=== PATIENT | female | born 1935 | race Caucasian/White ===

== ENCOUNTER 2017-07-29 17:04 | Emergency (ER) | payer MEDICARE | END 2017-07-29 22:50 | disposition home or self-care (01) | LOC: D.ER 17:04 | DX: J18.9 Pneumonia, unspecified organism (principal); I10 Essential (primary) hypertension ==

== ENCOUNTER 2019-11-07 17:12 | Emergency (ER) | payer MEDICARE ==
[~2019-11-07] VITALS: Ht 162.6 cm; Wt 71.8 kg
[2019-11-07 17:31] VITALS: Ht 162.6 cm; Wt 71.8 kg
[2019-11-07] MEDS ORDERED: NORVASC5 MG PO (17:32)
[2019-11-07] MEDS ORDERED: HYDROCHLOROTHIA25 MG PO (17:33)
[2019-11-07] MEDS ORDERED: FLUTICASONE PRO16 GM NASAL (17:33)
[2019-11-07] MEDS ORDERED: LEVOCETIRIZINE PO (17:35)
[2019-11-07] MEDS ORDERED: MECLIZINE HCL25 MG PO (17:35)
[2019-11-07 18:22] LABS: BASOPHILS 0.5 % (0-2); EOSINOPHILS 1.7 % (0-7); HEMATOCRIT 40.4 % (36.0-48.0); HEMOGLOBIN 13.3 g/dL (12-16); IMMATURE GRANULOCYTES 0.1 % (0-5); LYMPHOCYTES 25.1 % (15-50); MCH 31.2 pg (26.0-34.0); MCHC 32.9 g/dL (31.0-37.0); MCV 94.8 fL (80.0-100.0); MEAN PLATELET VOLUME 10.8 fL (7.4-10.4); MONOCYTES 8.4 % (2-11); NEUTROPHILS 64.2 % (40-80); PLATELET COUNT 207 10x3/uL (130-400); RBC 4.26 10x6/uL (4.00-5.40); RDW 12.8 % (11.5-14.5); WBC 8.1 10x3/uL (4.8-10.8)
[2019-11-07 18:26] LABS: ALBUMIN 3.6 g/dL (3.4-5.0); ANION GAP 11.4 mmol/L (8-16); BILIRUBIN - TOTAL 0.5 mg/dL (0.2-1.3); CALCIUM 9.1 mg/dL (8.5-10.1); CARBON DIOXIDE 28.3 mmol/L (21.0-32.0); CREATININE - SERUM 1.3 mg/dL (0.6-1.3); PROTEIN - SERUM 7.6 g/dL (6.4-8.2)
[2019-11-07 18:54] LABS: POTASSIUM - SERUM 2.7 mmol/L (3.5-5.1)
[2019-11-07] MEDS ORDERED: K-DUR20 MEQ PO (19:16)
[2019-11-07 21:43] VITALS: BP 149/86
== END 2019-11-07 21:44 | disposition home or self-care (01) ==
LOC: D.ER 17:12
PROVIDERS: Family Medicine
DX: M54.2 Cervicalgia (principal); E87.6 Hypokalemia; M25.511 Pain in right shoulder; I10 Essential (primary) hypertension; I25.2 Old myocardial infarction; Z86.711 Personal history of pulmonary embolism

== ENCOUNTER 2019-11-21 19:43 | Emergency (ER) | payer MEDICARE ==
[~2019-11-21] VITALS: Ht 162.6 cm; Wt 72.3 kg
[~2019-11-21 19:43] MED LIST: FLUTICASONE PRO16 GM NASAL; HYDROCHLOROTHIA25 MG PO; K-DUR20 MEQ PO; LEVOCETIRIZINE PO; MECLIZINE HCL25 MG PO; NORVASC5 MG PO
[2019-11-21 19:47] VITALS: Ht 162.6 cm; Wt 72.3 kg
[2019-11-21 20:38] LABS: BASOPHILS 0.4 % (0-2); EOSINOPHILS 1.2 % (0-7); HEMATOCRIT 39.5 % (36.0-48.0); HEMOGLOBIN 12.6 g/dL (12-16); IMMATURE GRANULOCYTES 0.6 % (0-5); LYMPHOCYTES 15.7 % (15-50); MCH 30.8 pg (26.0-34.0); MCHC 31.9 g/dL (31.0-37.0); MCV 96.6 fL (80.0-100.0); MEAN PLATELET VOLUME 9.6 fL (7.4-10.4); MONOCYTES 6.7 % (2-11); NEUTROPHILS 75.4 % (40-80); RBC 4.09 10x6/uL (4.00-5.40); RDW 12.8 % (11.5-14.5); WBC 7.8 10x3/uL (4.8-10.8)
[2019-11-21 20:47] LABS: UDS - AMPHET NEGATIVE QUAL (NEGATIVE); UDS - BARB NEGATIVE QUAL (NEGATIVE); UDS - BENZO NEGATIVE QUAL (NEGATIVE); UDS - COCAINE NEGATIVE QUAL (NEGATIVE); UDS - OPIATE NEGATIVE QUAL (NEGATIVE); UDS - PCP NEGATIVE QUAL (NEGATIVE); UDS - THC NEGATIVE QUAL (NEGATIVE)
[2019-11-21 20:51] LABS: ANION GAP 9.1 mmol/L (8-16); CALCIUM 8.9 mg/dL (8.5-10.1); CARBON DIOXIDE 30.4 mmol/L (21.0-32.0); CREATININE - SERUM 1.4 mg/dL (0.6-1.3); POTASSIUM - SERUM 3.5 mmol/L (3.5-5.1)
[2019-11-21 20:56] LABS: PLATELET COUNT 273 10x3/uL (130-400)
[2019-11-21 20:59] LABS: BILIRUBIN NEGATIVE (NEGATIVE); GLUCOSE NEGATIVE (NEGATIVE); KETONE NEGATIVE (NEGATIVE); NITRITE NEGATIVE (NEGATIVE); UROBILINOGEN NORMAL (NORMAL)
[2019-11-21 21:03] LABS: APTT 23.6 SECONDS (22.8-39.4); INR 0.91 (0.85-1.17); PROTIME 12.3 SECONDS (11.6-15.0)
[2019-11-21 21:04] LABS: ALBUMIN 3.5 g/dL (3.4-5.0); BILIRUBIN - TOTAL 0.32 mg/dL (0.2-1.3); MAGNESIUM - SERUM 2.3 mg/dL (1.8-2.4); PROTEIN - SERUM 7.5 g/dL (6.4-8.2); THYROID STIMULATING HORMONE 2.18 uIU/mL (0.36-3.74); TROPONIN-I 0.024 ng/mL (0.000-0.060)
[2019-11-21 21:13] LABS: BACTERIA FEW /hpf (NEGATIVE); EPITHELIAL CELLS 0-5 /hpf (0-5); RED CELLS - URINE OCC /hpf (0-5); WHITE CELLS - URINE 0-5 /hpf (NEGATIVE)
[2019-11-21 21:27] VITALS: BP 134/65
== END 2019-11-21 21:33 | disposition home or self-care (01) ==
LOC: D.ER 19:43
PROVIDERS: Family Medicine
DX: R55 Syncope and collapse (principal); S09.90XA Unspecified injury of head, initial encounter; I10 Essential (primary) hypertension; I25.2 Old myocardial infarction; W19.XXXA Unspecified fall, initial encounter; Y93.9 Activity, unspecified; Y92.9 Unspecified place or not applicable

== ENCOUNTER 2020-01-15 12:24 | Inpatient (IN) | payer MEDICARE ==
[2020-01-15] VITALS (18 sets, daily range): BP systolic 115–163; BP diastolic 55–95; BMI 27.8
[~2020-01-15] VITALS: Ht 162.6 cm; Wt 72.7 kg
--- NOTE | 2020-01-15 12:24 | NUR ---
PT BIB FRIEND, ARRIVED AT [facility] REPORTING LEFT FACIAL DROOP X 1 HR. TO ER T3, DR AC AT BS, THEN TO CT @ 2756
--- NOTE | 2020-01-15 12:48 | NUR ---
FSBS= 151 MG/DL
--- NOTE | 2020-01-15 12:49 | NUR ---
CONSENT FOR VIDEO CONFERENCE AND TPA ADMIN EXPL TO PT, VERB UNDER. CONSENT SIGNED/WITNESSED
--- NOTE | 2020-01-15 12:50 | NUR ---
ANTHONY ELENA NOTIFIED AND ASSESSMENT COMPLETED WITH DR AUSTIN, NEUROLOGIST.
[2020-01-15 12:59] LABS: BASOPHILS 0.5 % (0-2); EOSINOPHILS 1.9 % (0-7); HEMATOCRIT 41.5 % (36.0-48.0); HEMOGLOBIN 13.6 g/dL (12-16); IMMATURE GRANULOCYTES 0.4 % (0-5); LYMPHOCYTES 24.2 % (15-50); MCH 30.7 pg (26.0-34.0); MCHC 32.8 g/dL (31.0-37.0); MCV 93.7 fL (80.0-100.0); MEAN PLATELET VOLUME 10.1 fL (7.4-10.4); MONOCYTES 7.4 % (2-11); NEUTROPHILS 65.6 % (40-80); RBC 4.43 10x6/uL (4.00-5.40); RDW 12.9 % (11.5-14.5); WBC 8.6 10x3/uL (4.8-10.8)
[2020-01-15 13:00] LABS: PLATELET COUNT 193 10x3/uL (130-400)
--- NOTE | 2020-01-15 13:00 | NUR ---
STROKE [facility] # [id number]
[2020-01-15 13:02] LABS: CALC OSMOLALITY 283 mosm/kg (275-300); CALCIUM 9.5 mg/dL (8.5-10.1); CARBON DIOXIDE 27.1 mmol/L (21.0-32.0); CHLORIDE - SERUM 105 mmol/L (98-107); CREATININE - SERUM 1.4 mg/dL (0.6-1.3); GLUCOSE 154 mg/dL (74-106); POTASSIUM - SERUM 3.6 mmol/L (3.5-5.1); SODIUM 140 mmol/L (136-145); UREA NITROGEN 17 mg/dL (7-18); eGFR NON AFRICAN AMERICAN 38 mL/min (90-120)
[2020-01-15 13:06] LABS: APTT 24.3 SECONDS (22.8-39.4); INR 0.94 (0.85-1.17); PROTIME 12.6 SECONDS (11.6-15.0)
--- NOTE | 2020-01-15 13:10 | NUR ---
DECISION MADE TO ADMIN TPA, 2 RN'S AT BS AND ADMIN PER PROTOCOL
[2020-01-15 13:21] LABS: ALBUMIN 3.5 g/dL (3.4-5.0); ALKALINE PHOSPHATASE 61 U/L (30-120); ALT (SGPT) 25 U/L (10-68); BILIRUBIN - TOTAL 0.57 mg/dL (0.2-1.3); CKMB 2.3 U/L (0.0-3.6); CREATINE KINASE 128 UL (21-215); MAGNESIUM - SERUM 2.4 mg/dL (1.8-2.4); PROTEIN - SERUM 7.5 g/dL (6.4-8.2); THYROID STIMULATING HORMONE 2.17 uIU/mL (0.36-3.74); TROPONIN-I < 0.017 ng/mL (0.000-0.060)
--- NOTE | 2020-01-15 13:40 | NUR ---
TO CT FOR CTA HEAD/NECK WITH CM, RN AND WASTE WATER PLANT OPERATOR. PT COND STABLE. DENIES REYES, N/V.
--- NOTE | 2020-01-15 15:30 | NUR ---
C/O RIGHT SIDED REYES. DR RINALDI NOTIFIED, DENIES NAUSEA, VSS.
--- NOTE | 2020-01-15 15:51 | NUR ---
TPA INFUSION AND 50ML NS FLUSH COMPLETE @ 1500
--- NOTE | 2020-01-15 18:30 | NUR ---
CONT TO C/O RIGHT SIDED REYES "IT HURTS WHEN I LIE MY HEAD BACK. i THINK IT'S MY EAR AND THE AIR BLOWING ON ME" NO CHANGE IN NEURO STATUS. VSS,
--- NOTE | 2020-01-15 19:05 | NUR ---
ATTEMPTED TO CALL REPORT TOP ICU, NO AVAILABLE ROOM
--- NOTE | 2020-01-15 19:16 | NUR ---
REPORT TO SP SEPULVEDA
[2020-01-15 19:30] LABS: BILIRUBIN NEGATIVE (NEGATIVE); GLUCOSE NEGATIVE (NEGATIVE); KETONE NEGATIVE (NEGATIVE); NITRITE NEGATIVE (NEGATIVE); UROBILINOGEN NORMAL (NORMAL)
--- NOTE | 2020-01-15 22:50 | NUR ---
2129 PT. TRANSPORTED TO ICU FROM ER. ALERT AND ORIENTED X4. SLURRED SPEECH NOTED, PT. DENIES NEEDS AT THIS TIME. WILL CONTINUE TO MONITOR
[2020-01-16] VITALS (13 sets, daily range): BP systolic 100–148; BP diastolic 43–98; Ht 162.6 cm; Wt 72.7 kg
--- NOTE | 2020-01-16 01:37 | NUR ---
2300 resting quietly. no changes at this time
--- NOTE | 2020-01-16 01:38 | NUR ---
0100 no changes at this time
--- NOTE | 2020-01-16 03:12 | NUR ---
NO CHANGES AT THIS TIME
--- NOTE | 2020-01-16 05:21 | NUR ---
0500 resting in bed quietly with eyes closed. no sign of complications at this time. Will continue to monitor.
[2020-01-16 05:26] LABS: BASOPHILS 0.4 % (0-2); EOSINOPHILS 1.5 % (0-7); HEMATOCRIT 39.9 % (36.0-48.0); IMMATURE GRANULOCYTES 0.3 % (0-5); LYMPHOCYTES 20.7 % (15-50); MCH 30.6 pg (26.0-34.0); MCHC 32.6 g/dL (31.0-37.0); MCV 93.9 fL (80.0-100.0); MEAN PLATELET VOLUME 9.7 fL (7.4-10.4); NEUTROPHILS 69.1 % (40-80); RBC 4.25 10x6/uL (4.00-5.40)
[2020-01-16 05:32] LABS: PLATELET COUNT 281 10x3/uL (130-400)
[2020-01-16 05:59] LABS: ALBUMIN 3.2 g/dL (3.4-5.0); ALKALINE PHOSPHATASE 59 U/L (30-120); ALT (SGPT) 20 U/L (10-68); BILIRUBIN - TOTAL 0.61 mg/dL (0.2-1.3); CARBON DIOXIDE 27.6 mmol/L (21.0-32.0); CHLORIDE - SERUM 104 mmol/L (98-107); CKMB 1.9 U/L (0.0-3.6); CREATINE KINASE 100 UL (21-215); CREATININE - SERUM 1.2 mg/dL (0.6-1.3); MAGNESIUM - SERUM 2.1 mg/dL (1.8-2.4); POTASSIUM - SERUM 3.1 mmol/L (3.5-5.1); SODIUM 140 mmol/L (136-145); TROPONIN-I 0.025 ng/mL (0.000-0.060); eGFR NON AFRICAN AMERICAN 45 mL/min (90-120)
[2020-01-16 06:01] LABS: CALC OSMOLALITY 278 mosm/kg (275-300); GLUCOSE 98 mg/dL (74-106); UREA NITROGEN 12 mg/dL (7-18)
--- NOTE | 2020-01-16 06:32 | NUR ---
0500 PT REMOVED BLOOD PRESSURE CUFF AND REFUSED TO PUT IT BACK ON RIGHT NOW.
--- NOTE | 2020-01-16 14:39 | NUR ---
0700 BEDSIDE REPORT RECEIVED FROM NIGHT ACETONE RECOVERY WORKER COMPLETE AWAKE AND ALERT ANSWERS QUSTIONS APPROPRIATELY
--- NOTE | 2020-01-16 14:42 | NUR ---
0900 UP TO BEDPAN VOIDS WITHOUT DIFFICULTY TURNS SELF N BED WITH MINIMAL ASSIST
--- NOTE | 2020-01-16 14:49 | NUR ---
1100 REMAINS NPO AWAITING SPEECH EVAL SWALLOW STUDY
--- NOTE | 2020-01-16 14:51 | NUR ---
1300 IN BED SPEAKING WITH FAMILY MEMBERS ON THE PHONE
--- NOTE | 2020-01-16 15:19 | NUR ---
1400 AAMBULATED TO ROOM DOOR WITH PHYSICAL THERAPY TO ASSIST
--- NOTE | 2020-01-16 15:20 | NUR ---
9297 SPEECH THERAPIST AT BEDSIDE PERFORMING SWALLOW STUDY ORDERED REGULAR DIET PUREED AND THIN LIQUIDS
--- NOTE | 2020-01-16 18:40 | NUR ---
1700 PATIENT GOT OUT OF BED INCONTINENT WITH STOOL ON FLOOR CHG BATH COMPLETE
--- NOTE | 2020-01-16 20:52 | NUR ---
1900 LAYING QUIETLY IN THE BED, TV ON. NO CONCERNS AT THIS TIME. WILL CONTINUE TO MONITOR
--- NOTE | 2020-01-16 21:37 | NUR ---
2100 SITTING UP ON SIDE OF THE BED EATING LILLIEO
--- NOTE | 2020-01-16 21:39 | NUR ---
2100 RESTING QUIETLY NO CONCERNS AT THIS TIME. WILL CONT. TO MONITOR
--- NOTE | 2020-01-16 23:42 | NUR ---
2300 NO CHANGES AT THIS TIME, WILL CONTINUE TO MONITOR
--- NOTE | 2020-01-17 01:01 | NUR ---
QUIETLY RESTING IN BED. NO CHANGES AT THIS TIME. WILL CONTINUE TO MONITOR
[2020-01-17 03:00] VITALS: BP 143/69
--- NOTE | 2020-01-17 03:04 | NUR ---
NO CHANGES NOTED AT THIS TIME
[2020-01-17 04:00] VITALS: BP 143/69
--- NOTE | 2020-01-17 05:42 | NUR ---
0500 resting in bed with eyes closed
[2020-01-17 06:33] LABS: ALBUMIN 3.2 g/dL (3.4-5.0); BILIRUBIN - TOTAL 0.7 mg/dL (0.2-1.3); CALCIUM 9.1 mg/dL (8.5-10.1); CARBON DIOXIDE 26.6 mmol/L (21.0-32.0); CREATININE - SERUM 1.1 mg/dL (0.6-1.3); MAGNESIUM - SERUM 2.3 mg/dL (1.8-2.4); POTASSIUM - SERUM 3.6 mmol/L (3.5-5.1); PROTEIN - SERUM 6.4 g/dL (6.4-8.2)
--- NOTE | 2020-01-17 08:01 | NUR ---
PT SET OFF BED ALARM STATING SHE NEEDS TO USE THE BR. REINFORCED RULES AND SAFETY ABOUT CALLING US FIRST AND PT VERBALIZED UNDERSTANDING. ASSISTED PT TO BEDSIDE COMMODE AND SHE VOIDED 300CC OF CLOUDY YELLOW URINE. SAT PT UP ON EDGE OF BED TO EAT BREAKFAST. PT VOICED THANKS. ASSESSED CANDY PULLER AND SHE HAS VERY STRONG R.CANDY PULLER BUT LEFT IS SLIGHTLY WEAKER. WILL CTM. NO IMMEDIATE NEEDS AT THIS TIME. CL IN REACH. BED ALARM ON.
[2020-01-17 08:18] LABS: BASOPHILS 0.2 % (0-2); EOSINOPHILS 1.2 % (0-7); HEMATOCRIT 44.1 % (36.0-48.0); HEMOGLOBIN 14.6 g/dL (12-16); IMMATURE GRANULOCYTES 0.1 % (0-5); LYMPHOCYTES 19.1 % (15-50); MCH 31.4 pg (26.0-34.0); MCHC 33.1 g/dL (31.0-37.0); MCV 94.8 fL (80.0-100.0); MEAN PLATELET VOLUME 9.5 fL (7.4-10.4); MONOCYTES 7.6 % (2-11); NEUTROPHILS 71.8 % (40-80); PLATELET COUNT 266 10x3/uL (130-400); RBC 4.65 10x6/uL (4.00-5.40); WBC 8.8 10x3/uL (4.8-10.8)
--- NOTE | 2020-01-17 08:28 | NUR ---
Nutrition follow-up: Pts diet advanced to regular puree with thin liquids Labs reviewed Wt: 160# Will provide food choices and honor food preferences within diet restrictions. RDN following.
--- NOTE | 2020-01-17 08:37 | NUR ---
PT BACK IN BED AND WANTS TO REST. PT ATE ABOUT 20% OF HER BREAKFAST AND SWALLOWED WITHOUT ANY DIFFICULTIES OR COUGHING NOTED. PTS CALLED BUT PT REQUESTED NOT TO TALK TO HIM. NO CURRENT NEEDS AT THIS TIME. WILL CTM.
--- NOTE | 2020-01-17 09:22 | NUR ---
PT IS DOING WELL. MORE ORIENTED AND ACTUALLY USING CALL LIGHT FOR ASSISTANCE TO BEDSIDE COMMODE. PT HAD MODERATE SIZE SEMI FORMED BOWEL MOVEMENT. ASSISTED PT BACK INTO BED AND PROVIDED WITH A WARM BLANKET REQUESTED. PT VOICED THANKS AND DENIES ANY FURTHER NEEDS AT THIS TIME. CL IN REACH, BED IN LOWEST, SIDE RAILS X2 AND BUILT IN BED ALARM ON.
--- NOTE | 2020-01-17 09:58 | NUR ---
PT IS STABLE AND ROUNDING STATES PT CAN TRANSFER OUT TO THE FLOOR. ORDER TO TRANSFER PLACED AND CALLED HELPER [employer] NOW WAITING ON A BED.
--- NOTE | 2020-01-17 10:43 | NUR ---
GATHERED ALL BELONGINGS AND TRANSFERRED PT TO HER NEW ROOM ON THE FLOOR. BEDSIDE SHIFT REPORT GIVEN TO TRINO PARRA. BUILT IN BED ALARM ON. CL IN HAND, BED IN LOWEST, SIDE RAILS X2. NO FURTHER NEEDS AT THIS TIME.
--- NOTE | 2020-01-17 12:12 | NUR ---
LYING IN BED,WITHOUT DISTRESS. DOOR OPEN TO MONITOR
[2020-01-17 12:53] VITALS: BP 148/83
--- NOTE | 2020-01-17 13:54 | NUR ---
SPOKE TO PT DAUGHTER, SISTER AND SON WHOMA HAVE CALLED TO CHECK ON PT, ADVISED PT HAD CT OF HEAD TODAY NUT HAS NOT BEEN READ BY DR YET. PT IS ALERT AND ORIENTED, FED PT LUNCH, NO OTHER NEEDS AT THIS TIME. CONTINUE WITH PLAN OF CARE
--- NOTE | 2020-01-17 17:04 | NUR ---
OT NOTE: PT COMPLETED SUPINE TO SIT WITH CGA. PT COMPLETED SIT TO STAND WITH CGA. PT COMPLETED ADL MOB WITH DRIER OPERATOR HELPER. PT COMPLETED SANTOSH SOCKS AT EOB WITH SETUP AND EXTRA TIME. PT COMPLETED TOILETING WITH CGA/MIN A. PT COMPLETED HYGIENE TASKS WITH CGA. [id number] THANK YOU,RAJENDRA BARKER
[2020-01-17 17:05] VITALS: BP 145/73
[2020-01-17 20:00] VITALS: BP 128/63
--- NOTE | 2020-01-17 20:00 | NUR ---
PT SITTING UP IN BED WITHOUT DISTRESS, AOX4. SOME CONFUSION AT TIMES WITH SITUATION. COMPLAINTS OF BLURRY VISION AND DIZZINESS WITH STANDING. UNABLE TO SEE MUCH OUT OF LEFT EYE. ASSISTED PT TO BATHROOM WITH WALKER AND BACK TO BED. PT VEERS TO RIGHT WHILE WALKING. LEFT SIDE WEAKNESS AND FACIAL DROOP NOTED. RASH OVER BACK AND CHEST. IV LEFT WRIST SL. O2 2L/NC. DAUGHTER AT BEDSIDE. BED ALARM ON. WILL CTM
[2020-01-18] VITALS: BP 136/80
--- NOTE | 2020-01-18 02:00 | NUR ---
DAUGHTER CALLED, UPDATE GIVEN. PT LYING IN BED SLEEPING AT THIS TIME.
[2020-01-18 04:00] VITALS: BP 135/71
[2020-01-18 06:29] LABS: ALBUMIN 2.9 g/dL (3.4-5.0); ANION GAP 10.6 mmol/L (8-16); BILIRUBIN - TOTAL 0.44 mg/dL (0.2-1.3); CALCIUM 8.8 mg/dL (8.5-10.1); CARBON DIOXIDE 27.8 mmol/L (21.0-32.0); CREATININE - SERUM 1.1 mg/dL (0.6-1.3); MAGNESIUM - SERUM 2.2 mg/dL (1.8-2.4); POTASSIUM - SERUM 3.4 mmol/L (3.5-5.1); PROTEIN - SERUM 6.8 g/dL (6.4-8.2)
[2020-01-18 06:38] LABS: BASOPHILS 0.3 % (0-2); HEMATOCRIT 39.7 % (36.0-48.0); HEMOGLOBIN 12.9 g/dL (12-16); IMMATURE GRANULOCYTES 0.3 % (0-5); LYMPHOCYTES 16.6 % (15-50); MCH 30.8 pg (26.0-34.0); MCHC 32.5 g/dL (31.0-37.0); MCV 94.7 fL (80.0-100.0); MEAN PLATELET VOLUME 9.8 fL (7.4-10.4); MONOCYTES 10.2 % (2-11); NEUTROPHILS 70.6 % (40-80); PLATELET COUNT 265 10x3/uL (130-400); RBC 4.19 10x6/uL (4.00-5.40); RDW 13.1 % (11.5-14.5)
--- NOTE | 2020-01-18 07:59 | NUR ---
ALERT AND ORIENTED. LUNGS CLEAR BILATERALLY. HEART SOUNDS S1 AND S2 HEARD IN ALL GONZALEZ. BOWEL SOUNDS ACTIVE X 4. IV TO LEFT WRIST SL PATENT WITHOUT REDNESS. DENIES NEEDS. BED LOW. BED ALARM ON . CALL DELGADO AND PERSONAL ITEMS IN REACH. WILL CONTINUE TO MONITOR.
[2020-01-18 09:36] VITALS: BP 144/82
--- NOTE | 2020-01-18 10:28 | NUR ---
PATIENT REFUSES PRN POTASSIUM.
[2020-01-18 12:51] VITALS: BP 166/82
--- NOTE | 2020-01-18 13:16 | NUR ---
CALLED PHARMACY FOR FLONASE.
--- NOTE | 2020-01-18 13:50 | NUR ---
Rehab Note- Acute Inpatient Rehab prescreen order received. The patient is a good candidate for inpatient acute rehab, will accept to [facility] Acute Inpatient Rehab when medically stable and ready for discharge from the acute hospital if in agreeance with [facility] Acute Inpatient Rehab. Will follow at this time. Thank you for this referral! Krista Núñez RN Clinical Liaison, [facility] Rehab
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
--- NOTE | 2020-01-18 14:01 | NUR ---
Nutrition follow-up: Diet: puree PO intake poor; ~20% of some meals Labs reviewed Wt: 160# Pt working with speech Pt may benefit from an appetite stimulant. RDN following.
[2020-01-18] MEDS ORDERED: XOPENEX 1.1.25 MG/3 UPD (14:06)
[2020-01-18] MEDS ORDERED: MUCINEX600 MG PO (14:06)
[2020-01-18] MEDS ORDERED: TESSALON PERLE100 MG PO (14:06)
[2020-01-18] MEDS ORDERED: PLAVIX75 MG PO (14:06)
[2020-01-18] MEDS ORDERED: PROTONIX40 MG PO (14:07)
[2020-01-18] MEDS ORDERED: FLUTICASONE PRO16 GM NASAL (14:08)
[2020-01-18] MEDS ORDERED: PRAVACHOL20 MG PO (14:10)
[2020-01-18] MEDS ORDERED: ZITHROMAX 500M500 MG IV (14:22)
[2020-01-18] MEDS ORDERED: ROCEPHIN 1 GM/D51 G1 IV (14:22)
--- NOTE | 2020-01-18 15:02 | MORECARE ---
CASE MANAGEMENT DISCHARGE SUMMARY PATIENT: BONIFACIO GLORIA UNIT: [id number] ADM DATE: 01/15/20 AGE: 84 : 36 SEX: F ROOM/BED: D.[facility] AUTHOR: ALAN SOTELO PHYSICIAN: REFERRING PHYSICIAN: LEONIE OAKES MD DATE OF SERVICE: 01/18/20 Discharge Plan Patient Name: BONIFACIO GLORIA Facility: [facility]:[place] : 1935 Planned Disposition: Inpatient Rehab Anticipated Discharge Date: Discharge Date: Expected LOS: Initial Reviewer: [email or web address] Initial Review Date: 01/15/2020 Generated: 01/18/20 4:02 pm Patient Name: BONIFACIO GLORIA Page [phone] at 1502 All edits/amendments must be made on the electronic document DICTATION DATE: 01/18/20 1502 HOME CARE SPECIALIST: JAMILA 01/18/20 1502 RPT#: [id number] DC DATE: STATUS: ADM IN [facility] [address] [place] [address] END OF REPORT
--- NOTE | 2020-01-18 15:12 | MORECARE ---
CASE MANAGEMENT DISCHARGE SUMMARY PATIENT: BONIFACIO GLORIA UNIT: [id number] ADM DATE: 01/15/20 AGE: 84 : 36 SEX: F ROOM/BED: D.2218 AUTHOR: ALAN SOTELO PHYSICIAN: REFERRING PHYSICIAN: LEONIE OAKES MD DATE OF SERVICE: 01/18/20 Discharge Plan Patient Name: BONIFACIO GLORIA [facility] : 1935 Planned Disposition: Inpatient Rehab Anticipated Discharge Date: Discharge Date: Expected LOS: Initial Reviewer: [email or web address] Initial Review Date: 01/15/2020 Generated: 01/18/20 4:11 pm Comments DCP- Discharge Planning Updated by [email or web address]: Audrey Gomez on 01/18/20 2:[address] PATIENT IS GOING TO INPATIENT REHAB AT [facility] SIGNED AND IMM SERVED AND EXPLAINED. PATIENT STATED THAT SHE LIVES WITH HER GRANDSON'S AND SHE IS INDEPENDENT WITH HER CARE USES A WALKER AT TIMES DCPIA - Discharge Planning Initial Assessment Updated by [email or web address]: Audrey Gomez on 01/18/20 3:10 pm * PCP DAY[facility] * Pharmacy [facility] * Preadmission Environment Home with Family * ADLs Independent * Equipment Rolling Walker Last DP export: 01/18/20 2:02 pm Patient Name: BONIFACIO GLORIA Page [phone] at 1512 All edits/amendments must be made on the electronic document DICTATION DATE: 01/18/20 1511 SUPERVISOR GATE SERVICES: JAMILA 01/18/20 1511 RPT#: [id number] DC DATE: STATUS: ADM IN [facility] [address] [place] [address] END OF REPORT
--- NOTE | 2020-01-18 16:16 | NUR ---
IV INFILTRATED TO LEFT WRIST. REMOVED WITH TIP INTACT. RESITED TO [facility] AFTER ONE ATTEMPT WITH 22 GAUGE.
--- NOTE | 2020-01-18 16:20 | NUR ---
CALLED LAB TO GET STAT CULTURES FOR DISCHARGE TO REHAB PER ORDER.
--- NOTE | 2020-01-18 16:45 | NUR ---
WAITING BLOOD CULTURES FOR DC TO REHAB.
--- NOTE | 2020-01-18 16:53 | NUR ---
REPORT CALLED TO [facility] ON REHAB. WAITING BLOOD CULTURES FOR DC.
--- NOTE | 2020-01-18 17:00 | NUR ---
DISCHARGE EDUCATION PROVIDED BOTH WRITTEN AND VERBAL. VERBALIZED UNDERSTANDING. DENIES FURTHER QUESTIONS. WILL DC TO REHAB AFTER BLOOD CULTURES DRAWN.
--- NOTE | 2020-01-18 17:40 | NUR ---
CULTURES DRAWN BY LAB. WILL DC TO REHAB.
--- NOTE | 2020-01-18 17:53 | NUR ---
PATIENT DC TO REHAB WITH ALL BELONGINGS.
--- NOTE | 2020-01-19 09:13 | MORECARE ---
CASE MANAGEMENT DISCHARGE SUMMARY PATIENT: BONIFACIO GLORIA UNIT: [id number] ADM DATE: 01/15/20 AGE: 84 : 36 SEX: F ROOM/BED: D.2218 AUTHOR: ALAN SOTELO PHYSICIAN: REFERRING PHYSICIAN: LEONIE OAKES MD DATE OF SERVICE: 01/19/20 Discharge Plan Patient Name: BONIFACIO GLORIA Facility: [facility]:[place] : 1935 Planned Disposition: Inpatient Rehab Anticipated Discharge Date: Discharge Date: 01/18/2020 Expected LOS: Initial Reviewer: [email or web address] Initial Review Date: 01/15/2020 Generated: 01/19/20 10:12 am Comments DCP- Discharge Planning Updated by [id number]: Audrey Gomez on 01/18/20 2:[address] PATIENT IS GOING TO INPATIENT REHAB AT [facility] SIGNED AND IMM SERVED AND EXPLAINED. PATIENT STATED THAT SHE LIVES WITH HER GRANDSON'S AND SHE IS INDEPENDENT WITH HER CARE USES A WALKER AT TIMES DCPIA - Discharge Planning Initial Assessment Updated by [id number]: Audrey Gomez on 01/18/20 3:10 pm * PCP DAYSI * Pharmacy [facility] * Preadmission Environment Home with Family * ADLs Independent * Equipment Rolling Walker Coverage Notice Reviewer: [email or web address] Deb Gomez Notice Issued Date-Time: 01/18/2020 15:00 Notice Type: IM Discharge Notice Notice Delivered To: Patient Relationship to Patient: Medication Assistant Name: Delivery Method: HAND - Hand Delivered Pretty Days: Prior Verbal Notification: Recipient Understood Notice: Yes Recipient Signature: Yes Med Rec Note Co-signed by Attending: Coverage Notice Comment: Reviewer: [email or web address] Deb Gomez Notice Issued Date-Time: 01/18/2020 15:00 Notice Type: Patient Choice Letter Notice Delivered To: Patient Relationship to Patient: Medication Assistant Name: Delivery Method: HAND - Hand Delivered Pretty Days: Prior Verbal Notification: Recipient Understood Notice: Yes Recipient Signature: Yes Med Rec Note Co-signed by Attending: Coverage Notice Comment: Last DP export: 01/18/20 2:12 pm Patient Name: BONIFACIO GLORIA Page [phone] at 0913 All edits/amendments must be made on the electronic document DICTATION DATE: 01/19/20911 FORMING PROCESS LINE WORKER: JAMILA 01/19/20911 RPT#: [id number] DC DATE:01/18/20 STATUS: DIS IN [facility] [address] [place] [address] END OF REPORT
== END 2020-01-18 17:54 | DRG 62 ==
LOC: D.ER 12:24 → D.MS 19:14 → D.ICU 19:14 → D.MS 01-17 10:42
PROVIDERS: Family Medicine; ADMIT Family Medicine; ATTEND Family Medicine
DX: I63.89 Other cerebral infarction (principal); G81.94 Hemiplegia, unspecified affecting left nondominant side; N17.9 Acute kidney failure, unspecified; R73.9 Hyperglycemia, unspecified; I10 Essential (primary) hypertension; I25.10 Atherosclerotic heart disease of native coronary artery without angina pectoris

== ENCOUNTER 2020-01-18 17:55 | Inpatient (IN) | payer MEDICARE ==
[~2020-01-18] VITALS: Ht 162.6 cm; Wt 76.2 kg
[~2020-01-18 17:55] MED LIST changes: +MUCINEX600 MG PO; +PLAVIX75 MG PO; +PRAVACHOL20 MG PO; +PROTONIX40 MG PO; +ROCEPHIN 1 GM/D51 G1 IV; +TESSALON PERLE100 MG PO; +XOPENEX 1.1.25 MG/3 UPD; +ZITHROMAX 500M500 MG IV
[2020-01-18 21:07] VITALS: BP 153/77
[2020-01-18 22:35] VITALS: BP 153/77; BMI 28.9
--- NOTE | 2020-01-19 00:46 | NUR ---
PT ASLEEP, AROUSES EASILY TO VOICE, RESPIRATIONS EVEN AND UNLABORED, NO IMMEDIATE NEEDS NOTED AT THIS TIME, FALL PRECAUTIONS IN PLACE, FLUIDS/CALL LIGHT WITHIN REACH
--- NOTE | 2020-01-19 04:18 | NUR ---
PT ASLEEP, AROUSES EASILY TO VOICE, RESPIRATIONS EVEN AND UNLABORED, NO IMMEDIATE NEEDS NOTED AT THIS TIME, FALL PRECAUTIONS IN PLACE, FLUIDS/CALL LIGHT WITHIN REACH
[2020-01-19 05:52] LABS: BASOPHILS 0.4 % (0-2); EOSINOPHILS 1.5 % (0-7); HEMATOCRIT 39.1 % (36.0-48.0); HEMOGLOBIN 12.6 g/dL (12-16); IMMATURE GRANULOCYTES 0.2 % (0-5); LYMPHOCYTES 11.4 % (15-50); MCH 30.4 pg (26.0-34.0); MCHC 32.2 g/dL (31.0-37.0); MCV 94.4 fL (80.0-100.0); MEAN PLATELET VOLUME 9.4 fL (7.4-10.4); MONOCYTES 8.9 % (2-11); NEUTROPHILS 77.6 % (40-80); PLATELET COUNT 258 10x3/uL (130-400); RBC 4.14 10x6/uL (4.00-5.40); WBC 8.5 10x3/uL (4.8-10.8)
[2020-01-19 06:20] LABS: ANION GAP 12.5 mmol/L (8-16); CALCIUM 8.9 mg/dL (8.5-10.1); CARBON DIOXIDE 28.1 mmol/L (21.0-32.0); CREATININE - SERUM 1.1 mg/dL (0.6-1.3); POTASSIUM - SERUM 3.6 mmol/L (3.5-5.1)
--- NOTE | 2020-01-19 08:00 | NUR ---
ALERT AND ORIENTED X3, HOB HAVING BREAKFAST. NO NEEDS VOICED.
[2020-01-19 08:28] VITALS: BP 139/61
--- NOTE | 2020-01-19 08:30 | NUR ---
ALERT AND ORIENTED X3, ASSIST TO RESTROOM WITH MIN ASSIST WITH TRANSFER. BACK TO BEDSIDE WITH C/L AT SIDE
--- NOTE | 2020-01-19 11:00 | NUR ---
REVIEWED DC MEDS AND FOLLOW UP APPT WITH [facility] TO FOLLOW. MEDS CALLED TO [address]
--- NOTE | 2020-01-19 11:40 | NUR ---
DISCHARGED WITH VIA PRIVATE CAR. ALL BELONGINGS AND INSTRUCTIONS WITH PT. ALERT AND ORIENTED X3, NO C/O VOICED.
[2020-01-19 12:58] VITALS: Ht 162.6 cm; Wt 76.2 kg
--- NOTE | 2020-01-19 13:04 | NUR ---
PATIENT ADMITTED TO REHAB FROM ACUTE FLOOR. HER PCP IS DR. TAVAREZ. DME AT HOME IS A ROLLING WALKER. DISCHARGE PLANS ARE FOR HER TO RETURN TO HER HOME WITH HER FAMILY. WILL CONTNUE TO FOLLOW WITH PATIENT.
--- NOTE | 2020-01-19 13:50 | NUR ---
BACK TO ROOM AFTER THERAPY. DENIES NEEDS. DIET CHANGE TO PUREED, WORKING WITH [facility]. [facility]IMMER[facility] IN REACH
[2020-01-19 19:38] VITALS: BP 140/61
--- NOTE | 2020-01-19 20:00 | NUR ---
PATIENT RECEIVED SITTING UP IN BED. AT BEDSIDE. DAUGHTER C/O NOT BEING ABLE TO CALL. PATIENT PHONE REPLACED. PHONE IS WORKING. BED LOW. ALARM ON. CALL LIGHT WITHIN REACH. WILL CONTINUE TO MONITOR
--- NOTE | 2020-01-19 20:00 | NUR ---
PATIENT HAS SKIN RASH ON BACK, UNDER BREASTS, & CHEST. STATES "THEY ARE FLEA BITES." DR. CABRERA NOTIFIED ON HIS ROUNDING SHEET. BED LOW. ALARM ON. CALL LIGHT WITHIN REACH. WILL CONTINUE TO MONITOR.
--- NOTE | 2020-01-19 23:14 | NUR ---
PATIENT DAUGHTER CALLED TO CHECK ON PATIENT. DAUGHTER TOLD PATIENT & HER DAD ARE ASLEEP.
--- NOTE | 2020-01-20 04:57 | NUR ---
PATIENT EYES CLOSED. RESPIRATIONS 18 & EVEN. BED LOW. IN ROOM. ALARM ON. CALL LIGHT WITHIN REACH. WILL CONTINUE TO MONITOR.
--- NOTE | 2020-01-20 06:36 | NUR ---
PATIENT USED CALL LIGHT FOR ASSIST. PATIENT MINIMAL ASSIST INTO & OUT OF BED. MINIMAL ASSIST ONTO TOILET. VOID ONLY. PATIENT RETURNED TO BED. O2 ON. BED LOW. ALARM ON. CALL LIGHT WITHIN REACH. WILL CONTINUE TO MONITOR.
[2020-01-20 07:35] VITALS: BP 148/74
--- NOTE | 2020-01-20 08:37 | NUR ---
SHE IS CONFUSED TIMES. THE BED ALARM IS ON AND THE CALL LIGHT IS WITHIN REACH. SHE HAS RED RAISED "BITES" BUMPS ON HER BACK AND CHEST AREA.
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
--- NOTE | 2020-01-20 19:27 | NUR ---
PATIENT RECEIVED LAYING IN BED. PATIENT MINIMAL ASSIST INTO & OUT OF BED. VOID ONLY. BED LOW. ALARM ON. CALL LIGHT WITHIN REACH. WILL CONTINUE TO MONITOR.
[2020-01-20 20:35] VITALS: BP 139/57
--- NOTE | 2020-01-20 23:20 | NUR ---
I have reviewed this patient and I concur with the Shift Assessment completed by the Licensed Practical Nurse today this shift.
--- NOTE | 2020-01-21 01:10 | NUR ---
PATIENT USED CALL LIGHT FOR ASSIST. MINIMAL ASSIST INTO & OUT OF WHEELCHAIR. VOID ONLY. RETURNED BACK TO LOW BED. ALARM ON. CALL LIGHT WITHIN REACH. WILL CONTINUE TO MONITOR.
--- NOTE | 2020-01-21 08:00 | NUR ---
SHIFT ASSMT COMPLETED.DENIES NEEDS.BREAKFAST GIVEN.
[2020-01-21 08:26] VITALS: BP 138/67
--- NOTE | 2020-01-21 12:00 | NUR ---
EATING LUNCH.CL IN REACH.
[2020-01-21 20:00] VITALS: BP 140/72
--- NOTE | 2020-01-21 20:00 | NUR ---
PATIENT RECEIVED SITTING UP IN BED. ASSESSMENT & VITAL SIGNS DONE. NO CHANGE TO RASH ON BACK, CHEST, ABDOMEN & ARMS. NO C/O OF PAIN OR ITCHING. BED LOW. ALARM ON. CALL LIGHT WITHIN REACH. WILL CONTINUE TO MONITOR.
--- NOTE | 2020-01-22 01:50 | NUR ---
EYES CLOSED. RESPIRATIONS 18 & EVEN. BED LOW. ALARM ON. CALL LIGHT WITHIN REACH. WILL CONTINUE TO MONITOR.
--- NOTE | 2020-01-22 04:31 | NUR ---
I have reviewed this patient and I concur with the Shift Assessment completed by the Licensed Practical Nurse today this shift.
[2020-01-22 07:25] LABS: CALCIUM 9.1 mg/dL (8.5-10.1); CREATININE - SERUM 1.2 mg/dL (0.6-1.3)
[2020-01-22 07:55] LABS: BASOPHILS 0.4 % (0-2); EOSINOPHILS 3.1 % (0-7); HEMATOCRIT 38.4 % (36.0-48.0); HEMOGLOBIN 12.5 g/dL (12-16); IMMATURE GRANULOCYTES 0.1 % (0-5); LYMPHOCYTES 24.6 % (15-50); MCH 30.7 pg (26.0-34.0); MCHC 32.6 g/dL (31.0-37.0); MCV 94.3 fL (80.0-100.0); MEAN PLATELET VOLUME 9.7 fL (7.4-10.4); MONOCYTES 8.2 % (2-11); NEUTROPHILS 63.6 % (40-80); PLATELET COUNT 284 10x3/uL (130-400); RBC 4.07 10x6/uL (4.00-5.40); RDW 12.9 % (11.5-14.5); WBC 7.7 10x3/uL (4.8-10.8)
[2020-01-22 08:00] VITALS: BP 122/67
--- NOTE | 2020-01-22 20:04 | NUR ---
PT IN BED, LAYING QUIETLY, NO NEEDS NOTED, RESPIRATIONS EVEN AND UNLABORED, FALL PRECAUTIONS IN PLACE, FLUIDS/CALL LIGHT WITHIN REACH, LAC SALINE LOCK PATENT, RECIEVED IN REPORT, ABUSIVE NO VISITATIONS OR CALLS ALLOWED
[2020-01-22 20:11] VITALS: BP 143/72
--- NOTE | 2020-01-23 00:44 | NUR ---
PT IN BED ASLEEP, AROUSES EASILY TO VOICE, NO NEEDS NOTED, RESPIRATIONS EVEN AND UNLABORED, FALL PRECAUTIONS IN PLACE, FLUIDS/CALL LIGHT WITHIN REACH
--- NOTE | 2020-01-23 06:45 | NUR ---
PT LAC SALINE LOC FLUSHED, NO BLOOD RETURN, ALCOHOL CAPS IN USE
[2020-01-23 07:30] VITALS: BP 139/66
--- NOTE | 2020-01-23 07:30 | NUR ---
RESTING QIETLY IN BED.NO SIGNS OF ACUTE DISTRESS.ASSESSMENT CONPLETED.CL IN EASY REACH,BED IN LOW POSITION.BED ALARM ON AND WORKING.
--- NOTE | 2020-01-23 14:13 | NUR ---
Nutrition Follow-up: Diet: Regular Puree PO intake: ~45% x last 6 meals. She states that her appetite is "okay." States that she does not want a Puree diet and would eat more on a Regular "soft" diet. She likes and has been drinking Boost oral nutrition supplement. Last BM: 01/21/20. Wt: 168# (01/19/20) Meds noted: HCTZ, K-dur. Labs noted: GFR 45(L), Glu 112(H) Recommend PO diet per TEACHER ASSOCIATE recommendations. Boost with meals. RD following.
--- NOTE | 2020-01-23 19:21 | NUR ---
PT ASLEEP, AROUSES EASILY TO VOICE, NO IMMEDIATE NEEDS NOTED, FALL PRECAUTIONS IN PLACE, RESPIRATIONS EVEN AND UNLABORED, FLUIDS/CALL LIGHT WITHIN REACH
[2020-01-23 22:09] VITALS: BP 142/71
--- NOTE | 2020-01-23 23:59 | NUR ---
PT ASLEEP, AROUSES EASILY TO VOICE, NO IMMEDIATE NEEDS NOTED, FALL PRECAUTIONS IN PLACE, RESPIRATIONS EVEN AND UNLABORED, FLUIDS/CALL LIGHT WITHIN REACH
[2020-01-24 07:21] LABS: BASOPHILS 0.4 % (0-2); EOSINOPHILS 4.1 % (0-7); HEMOGLOBIN 11.8 g/dL (12-16); IMMATURE GRANULOCYTES 0.1 % (0-5); MCH 30.3 pg (26.0-34.0); MCHC 31.9 g/dL (31.0-37.0); MCV 95.1 fL (80.0-100.0); MEAN PLATELET VOLUME 8.9 fL (7.4-10.4); MONOCYTES 8.8 % (2-11); NEUTROPHILS 63.6 % (40-80); PLATELET COUNT 277 10x3/uL (130-400); RBC 3.89 10x6/uL (4.00-5.40); RDW 12.9 % (11.5-14.5); WBC 6.8 10x3/uL (4.8-10.8)
[2020-01-24 07:45] LABS: ANION GAP 9.8 mmol/L (8-16); CALCIUM 8.8 mg/dL (8.5-10.1); CARBON DIOXIDE 29.6 mmol/L (21.0-32.0); CREATININE - SERUM 1.2 mg/dL (0.6-1.3); POTASSIUM - SERUM 3.4 mmol/L (3.5-5.1)
[2020-01-24 08:10] VITALS: BP 138/64
--- NOTE | 2020-01-24 09:43 | NUR ---
NO C/O PAIN. PARTICIPATES IN THERAPY.
--- NOTE | 2020-01-24 12:32 | RHP ---
PATIENT: BONIFACIO GLORIA MEDICAL RECORD: [id number] ACCOUNT: [id number] LOCATION:[id number] : 37 ADMISSION DATE: 01/18/20 REHABILITATION HISTORY AND PHYSICAL EXAMINATION POST ADMISSION PHYSICIAN EXAMINATION POST ADMISSION PHYSICAL EXAMINATION AND HISTORY AND PHYSICAL DATE OF ADMISSION: 01/18/2020 ADMITTING DIAGNOSIS: Cerebrovascular accident. HISTORY OF PRESENT ILLNESS: The patient is an 84-year-old female patient who presented to the Emergency Department with complaints of sudden onset of left facial drooping, difficulty speaking, dysarthria, weakness in her arm and leg. The patient had nothing that was really noted to trigger this event. The patient had a little bit of headache and confusion. [place] safe TPA was initiated in the Emergency Room and improvement of her weakness came along. Admission CT of her head showed no evidence of hemorrhage or ischemic stroke. CT angiography of her neck did not show any significant stenosis or other changes. She was admitted to intensive care unit with CVA on 01/15/2020. She has got a history of hypertension, coronary artery disease, previous stroke, MD and stenting in the past. Neurology was consulted. The patient transferred out to the medical floor from her ICU stay. She has been followed by neurology throughout her stay. She has been participating with speech therapy. She needs to be monitored closely for supplemental O2 need. She need to monitored for any changes in neurological conditions. She is on anticoagulation therapy. She had TPA on admit. She is on electrolyte protocol. She has got left-sided neglect, balance deficits, decreased activity tolerance, impaired mobility, decreased range of motion, decreased strength. She has got gait disturbance, limited safety awareness. These are all barriers to her discharge home. She lives at home with her family, was independent with ADLs and mobility prior to this. She is in a rollator. She is currently set up for mod assist for ADLs, mod assist for mobility. Would like to return home at her prior level of functioning. COMORBIDITIES: Include weakness, oropharyngeal dysphagia, CVA, stable lacunar infarcts involving the basal ganglia, hyperglycemia, hypertension, coronary artery disease, hemiparesis. PAST MEDICAL HISTORY: Significant for MD in the past. She has had previous CVA. PAST SURGICAL HISTORY: Includes stents and angioplasty. ALLERGIES: CODEINE AND SHELLFISH. CURRENT MEDICATIONS: Include Zithromax 500 mg daily. She is on Rocephin 1 g daily, hydrochlorothiazide 25 mg daily, Plavix 75 mg daily. She is on Xopenex 1.25 mg b.i.d. She is on Protonix 40 mg daily, pravastatin 40 mg at bedtime, potassium chloride 20 mEq b.i.d., Mucinex 1200 mg b.i.d., Tessalon Perles 100 mg t.i.d., and Tylenol p.r.n. HABITS: No alcohol or tobacco use. FAMILY HISTORY: Noncontributory. HISTORY AND PHYSICAL [id number] BONIFACIO GLORIA SOCIAL HISTORY: The patient hopes to return back home and get back to her prior level of functioning. REVIEW OF SYSTEMS: GENERAL: Does complain of weakness and fatigue. HEENT: Denies cold, cough, or congestion. CARDIOVASCULAR: Denies chest pain. PHYSICAL EXAMINATION: VITAL SIGNS: Stable, afebrile. GENERAL: A well-developed elderly female, in no acute distress upon exam. HEENT: Normocephalic and atraumatic. Mucosa moist. NECK: Supple. No lymphadenopathy. LUNGS: Clear at this time. HEART: Regular rate and rhythm. ABDOMEN: Soft, benign, and nondistended. Positive bowel sounds x 4. EXTREMITIES: No clubbing, cyanosis or edema. NEUROLOGIC: She does have some noted weakness. LABORATORY DATA: White count is 8.5, H&H of 12 and 39, and platelet count was noted to be 258. Sodium 143, potassium 3.6, BUN and creatinine 14 and 1.1, and blood sugar is noted to be 112. ASSESSMENT: This is an 84-year-old female patient admitted to rehab with a working diagnosis of cerebrovascular accident. The patient has potential to make improvement. We will institute the following multidisciplinary therapies including, but not limited to physical, occupational, respiratory, speech, nutritional services, prosthetics and orthotics. Given her complex medical condition and risks for more complications, rehabilitation services cannot be provided at a low level of care at senior care facility. PLAN: 1. [facility] to include the following disciplines; A. Physical therapy to improve gait, all transfer skills and bed mobility to a modified independent level. B. Occupational therapy to improve activities of daily living. C. Case management to help with discharge planning and placement options. D. Nutrition to assist with nutritional needs. E. Rehabilitation nursing to assist in monitoring the patient's underlying medical and to assist with any type of bowel or bladder management. 2. The patient's current medication and medical care will be continued. 3. The patient will be placed on standard fall precautions. 4. The patient's estimated length of stay is approximately 7-10 days. 5. We will discuss this the patient's care team staff meeting this week. Continue on meds where appropriate including her Plavix and see again in the a.m. TRANSINT:[id number] Voice Confirmation ID: [id number] DOCUMENT ID: [id number] WES notes whether there has been none or any medical/functional change since admission: - No change since prescreen. HISTORY AND PHYSICAL [id number] BONIFACIO GLORIA attests patient continues to be appropriate for IRF: - Continues to be appropriate. PADDY CABRERA MD at 1232 CC: [id number] DICTATION DATE: 01/19/20 0753 ASSISTANT PROFESSOR IN FAMILY STUDIES: 01/19/20 1029 ADM IN [place] [id number] [place] [address]
--- NOTE | 2020-01-24 13:39 | NUR ---
NO CHANGE IN ASSESSMENT. FAMILY IN ROOM.
--- NOTE | 2020-01-24 20:49 | NUR ---
PT IN BED NO IMMEDIATE NEEDS NOTED, FALL PRECAUTIONS IN PLACE, RESPIRATIONS EASY AND EVEN, BED IN LOWEST POSITION, FLUIDS/CALL LIGHT WITHIN REACH
[2020-01-24 20:53] VITALS: BP 140/65
--- NOTE | 2020-01-25 01:35 | NUR ---
PT BOX CLOSING MACHINE OPERATOR LIGHT, PT REPORTS BEING "WET", PT UP TO BR VIA WC WITH ASSISTANCE, VOIDED, ADULT BRIEF CHANGED, BEDDING CHANGED, PT BACK TO BED, DENIES FURTHER NEEDS, FALL PRECAUTIONS IN PLACE
[2020-01-25 08:00] VITALS: BP 161/95
[2020-01-25 19:32] VITALS: BP 138/76
--- NOTE | 2020-01-25 20:14 | NUR ---
REPORT RECEIVED AND ROUNDING COMPLETE. PATIENT LAYING IN BED, ASSISTED PATIENT TO THE BATHROOM, CLEAN GOWN AND CLEAN LINENS ON BED. PATIENT SITTING IN WHEELCHAIR TO BRUSH TEETH, DAUGHTER AT BEDSIDE ASSISTING PATIENT. PATIENT WAS MIN. ASSIST. NO DISTRESSED NOTED. CALL LIGHT LAYING ON THE BED. BED IN LOWEST LOCKED POSITION. NO OTHER NEEDS AT THIS TIME DAUGHTER TO CALL NURSE FOR ASSISTANCE IN ASSISTING PATIENT BACK TO BED.
--- NOTE | 2020-01-25 20:59 | NUR ---
ASSISTED PATIENT BACK TO BED, DAUGHTER IN THE ROOM APPLYING LOTION TO HER FEET, REPORTED THAT HER MOMS RIGHT FOOT IS RED AND HOT AND SHE BELIEVE SHE IS HAVING A GOUT ATTACK. FOOT IS INDEED RED AND WARM. WILL REPORT THIS TO MD OR ON COMING NURSE IN THE AM. PATIENT STATES IS DOES NOT HURT. ASSESMENT COMPLETE AT THIS TIME.
--- NOTE | 2020-01-26 06:36 | NUR ---
ASSISTED PATIENT TO THE BATHROOM, ASSISTED WITH CLEANING HER UP AND NEW BRIEF. HER BOTTOM DOES NOT LOOKS SO RED AND IRRITATED THIS MORNING. ASSISTED BACK TO BED. CALL LIGHT WIHTIN REACH AND BED IN LOWEST LOCKED POSITION.
[2020-01-26 07:40] LABS: BASOPHILS 0.5 % (0-2); EOSINOPHILS 2.7 % (0-7); HEMATOCRIT 37.8 % (36.0-48.0); HEMOGLOBIN 12.1 g/dL (12-16); IMMATURE GRANULOCYTES 0.2 % (0-5); LYMPHOCYTES 25.8 % (15-50); MCH 30.5 pg (26.0-34.0); MCV 95.2 fL (80.0-100.0); MEAN PLATELET VOLUME 9.2 fL (7.4-10.4); MONOCYTES 8.2 % (2-11); NEUTROPHILS 62.6 % (40-80); RBC 3.97 10x6/uL (4.00-5.40); RDW 12.8 % (11.5-14.5); WBC 8.1 10x3/uL (4.8-10.8)
[2020-01-26 07:41] LABS: PLATELET COUNT 351 10x3/uL (130-400)
[2020-01-26 07:54] VITALS: BP 138/72
[2020-01-26 07:54] LABS: ANION GAP 14.6 mmol/L (8-16); CALCIUM 9.5 mg/dL (8.5-10.1); CARBON DIOXIDE 27.3 mmol/L (21.0-32.0); CREATININE - SERUM 1.3 mg/dL (0.6-1.3); POTASSIUM - SERUM 3.9 mmol/L (3.5-5.1)
--- NOTE | 2020-01-26 11:12 | NUR ---
PATIENT DAUGHTER CALLS AND VOICES A CONCERN REGARDING HER MOTHER AND OF THE NURSES . TOLD PATIENT DAUGHTER THAT I WOULD REPORT THIS TO THE NURSE ROOF SHINGLER, ADRIAN AND THAT SHE WOULD BE VISITING WITH HER MOTHER AND WOULD CALL HER ALSO. 01/25/20. WILL CONTINUE TO FOLLOW WITH PATIENT. THIS WAS REPORTED TO ADRIAN ON 01/25/20.
--- NOTE | 2020-01-26 13:56 | NUR ---
HAS BEEN SITTING UP WITH THERAPY TODAY. SITS ON SIDE OF BED FOR MEALS. USES WALKER FOR MOTION ASST. POOR AWARENESS NOTED TO LEFT SIDE. LEFT SIDE WEAK. RASH TO TORSO STILL PRESENT BUT LOOKS LIKE IT IS DRYING UP.
[2020-01-26 20:00] VITALS: BP 136/74
--- NOTE | 2020-01-26 20:00 | NUR ---
PATIENT TOILETED. VOID ONLY. MINIMAL ASSIST INTO & OUT OF BED. OINTMENT TO RASH APPLIED. RASH SPOTS HAVE DRY AREAS. PATIENT RETURNED TO BED. ALARM ON. CALL LIGHT WITHIN REACH. WILL CONTINUE TO MONITOR.
--- NOTE | 2020-01-26 20:00 | NUR ---
PATIENT RECEIVED SITTING UP IN BED. ASSESSMENT & VITAL SIGNS DONE. NO C/O PAIN OR DISTRESS. PATIENT MINIMAL ASSIST OUT OF BED. AMBULATING WITH ROLLING WALKER. RETURNED TO LOW BED. ALARM ON. CALL LIGHT WITHIN REACH. WILL CONTINUE TO MONITOR.
--- NOTE | 2020-01-27 01:34 | NUR ---
PATIENT DAUGHTER CALLED TO CHECK ON PATIENT & WAS TOLD PATIENT EYES CLOSED. BED LOW. ALARM ON. CALL LIGHT WITHIN REACH. WILL CONTINUE TO MONITOR.
--- NOTE | 2020-01-27 02:04 | NUR ---
I have reviewed this patient and I concur with the Shift Assessment completed by the Licensed Practical Nurse today this shift.
[2020-01-27 08:00] VITALS: BP 116/71
--- NOTE | 2020-01-27 11:49 | NUR ---
WALKS WITH WALKER TO BATHROOM. DENIES NEEDS OR C/O. LEFT SIDE STILL WEAKER THAN RIGHT. IS CONT OF B/B. CALL LIGHT IN REACH
--- NOTE | 2020-01-27 17:57 | NUR ---
RESTING QUIETLY IN BED. E YES CLOSED. CALL LIGHT IN REACH
--- NOTE | 2020-01-27 19:30 | NUR ---
PATIENT RECEIVED SITTING UP IN BED. ASSESSMENT & VITAL SIGNS DONE. RASH ON TORSO & HANDS, BUTT, LEGS DRYING UP IN CENTER. REDNESS ONGOING. NO C/OAIN OR DISTRESS. BED LOW. ALARM ON. CALL LIGHT WITHIN REACH. WILL CONTINUE TO MONITOR.
[2020-01-27 20:13] VITALS: BP 166/89
--- NOTE | 2020-01-28 01:25 | NUR ---
PATIENT DAUGHTER CALLED ABOUT CHF. DAUGHTER TOLD "YOU WILL HAVE TO ASK THE PHYSICIAN ABOUT PATIENT HEART. DAUGHTER WAS SATISFIED WITH THE ANSWER.
--- NOTE | 2020-01-28 02:08 | NUR ---
I have reviewed this patient and I concur with the Shift Assessment completed by the Licensed Practical Nurse today this shift.
--- NOTE | 2020-01-28 02:14 | NUR ---
PATIENT EYES CLOSED. RESPIRATIONS 18 & EVEN. 02@2LNC. BED LOW. ALARM ON. CALL LIGHT WITHIN REACH. WILL CONTINUE TO MONITOR.
[2020-01-28 08:00] VITALS: BP 123/70
--- NOTE | 2020-01-28 17:03 | NUR ---
LAYING IN BED WATCHING TV. DENIES WORSE SOB OR PAIN. CALL LIGHT IN REACH
[2020-01-28 19:46] VITALS: BP 149/79
--- NOTE | 2020-01-28 20:00 | NUR ---
PATIENT RECEIVED SITTING UP IN BED WATCHING TV. ASSESSMENT & VITAL SIGNS DONE. PATIENT TOILETED. VOID ONLY. RETURNED TO LOW BED USING ROLLING WALKER. ALARM ON. PHONE & CALL LIGHT WITHIN REACH. WILL CONTINUE TO MONITOR.
[2020-01-28 20:15] VITALS: BP 93/51
--- NOTE | 2020-01-29 01:28 | NUR ---
PATIENT GIVEN TYLENOL FOR PAIN. MELATONIN FOR SLEEP. DAUGHTER ON PHONE. BED LOW. ALARM ON. WILL CONTINUE TO MONITOR.
--- NOTE | 2020-01-29 02:00 | NUR ---
PATIENT EYES CLOSED. RESPIRATIONS 18 & EVEN. BED LOW. PHONE & CALL LIGHT WITHIN REACH. ALARM ON. CALL LIGHT WITHIN REACH. WILL CONTINUE TO MONITOR.
--- NOTE | 2020-01-29 03:25 | NUR ---
I have reviewed this patient and I concur with the Shift Assessment completed by the Licensed Practical Nurse today this shift.
--- NOTE | 2020-01-29 06:33 | NUR ---
PATIENT C/O NAUSEA. PATIENT GIVEN CRACKERS & LEMON CHEESH-NA SODA. CALL LIGHT WITHIN REACH. WILL CONTINUE TO MONITOR.
[2020-01-29 07:20] LABS: ANION GAP 12.9 mmol/L (8-16); CALCIUM 9.3 mg/dL (8.5-10.1); CARBON DIOXIDE 29.7 mmol/L (21.0-32.0); CREATININE - SERUM 1.3 mg/dL (0.6-1.3); POTASSIUM - SERUM 3.6 mmol/L (3.5-5.1)
[2020-01-29 07:43] LABS: BASOPHILS 0.5 % (0-2); EOSINOPHILS 6.3 % (0-7); HEMATOCRIT 39.4 % (36.0-48.0); HEMOGLOBIN 12.4 g/dL (12-16); IMMATURE GRANULOCYTES 0.4 % (0-5); LYMPHOCYTES 30.5 % (15-50); MCH 29.9 pg (26.0-34.0); MCHC 31.5 g/dL (31.0-37.0); MCV 94.9 fL (80.0-100.0); MEAN PLATELET VOLUME 9.1 fL (7.4-10.4); MONOCYTES 9.7 % (2-11); NEUTROPHILS 52.6 % (40-80); PLATELET COUNT 406 10x3/uL (130-400); RBC 4.15 10x6/uL (4.00-5.40); RDW 12.6 % (11.5-14.5); WBC 5.6 10x3/uL (4.8-10.8)
[2020-01-29 08:05] VITALS: BP 151/71
--- NOTE | 2020-01-29 08:18 | NUR ---
RESTING IN BED AT THIS TIME. ALERT, REFUSED BREAKFAST.CL IN REACH.
[2020-01-29 10:08] VITALS: BP 144/72
--- NOTE | 2020-01-29 10:11 | NUR ---
TROPONIN AND CXR ORDERED.
--- NOTE | 2020-01-29 12:34 | NUR ---
REPOSITIONED UP IN BED. EATING LUNCH. NO C/O PAIN OR DISTRESS NOTED. CL IN REACH.
--- NOTE | 2020-01-29 17:37 | NUR ---
NO CHANGE IN ASSESSMENT. EATING DINNER. NO DISTRESS NOTED. CL IN REACH.
[2020-01-29 19:30] VITALS: BP 148/83
--- NOTE | 2020-01-29 19:30 | NUR ---
ASSESSMENT PER FLOW SHEET, VS OBTAINED, PT REPORTS FLATUS, BM TODAY AND VOIDING WITH NO DIFFICULTY, PT'S DAUGHTER IN ROOM AT THIS TIME, PT RATES REYES 5/10, REQUESTS TYLENOL WITH EVENING MEDS, PT DENIES NEEDS AT THIS TIME, BED IN LOW POSITION, SIDE RAILS X 2, CALL LIGHT IN REAC, BED ALARM ON AND WORKING PROPERLY
[2020-01-29 20:10] VITALS: BP 123/64
--- NOTE | 2020-01-29 20:57 | NUR ---
PT AWAKE, ADM 2100 MEDS PER MD ORDERS, SEE EMAR WITH FRESH H20, PT UP TO BR VIA WC WITH ASSISTANCE, VOIDED WITH NO DIFFICULTY, CHANGED BRIEFS, PT BACK TO BED, DENIES FURTHER NEEDS, FALL PRECAUTIONS IN PLACE
--- NOTE | 2020-01-29 22:16 | NUR ---
PT RESTING WITH EYES CLOSED, RESP QUIET, NO DISTRESS NOTED, LEFT UNDISTURBED AT THIS TIME, FALL PRECAUTIONS IN PLACE
--- NOTE | 2020-01-30 02:40 | NUR ---
PT RESTING WITH EYES CLOSED, RESP QUIET, NO DISTRESS NOTED, LEFT UNDISTURBED AT THIS TIME, FALL PRECAUTIONS IN PLACE
--- NOTE | 2020-01-30 04:30 | NUR ---
PT RESTING WITH EYES CLOSED, RESP QUIET, NO DISTRESS NOTED, LEFT UNDISTURBED AT THIS TIME, FALL PRECAUTIONS IN PLACE
--- NOTE | 2020-01-30 06:19 | NUR ---
PT AWAKE, ADM 0600 MED PER MD ORDERS, SEE EMAR, WITH FRESH H20, PT UP TO BR WITH ASSISTANCE VIA WALKER, PT VOIDED WITH NO DIFFICULTY, PT CLEANED UP WITH WET WIPES, CLOTHES CHANGED, PT WASHES HANDS AND BRUSHES TEETH, PT BACK TO BED, DENIES FURTHER NEEDS OR PAIN, FALL PRECAUTIONS IN PLACE
--- NOTE | 2020-01-30 07:20 | NUR ---
RECEIVED IN BED.C/O FEELS LIKE A BALL RIGHT HERE IN MY STOMACH AND I CAN'T BREATH.BP 123/79,P 79,RESP 18,02 SAT 98% ON 2L/MIN.SKIN WARM AND DRY.NO VISIBLE SIGNS OF DISTRESS.PROTONIX TAKEN EARLIER AND REPORTS THE SAME THING HAPPENED YESTERDAY MORNING AFTR TAKING PROTONIX.WILL INFORM OF C/O. ASSESSMENT COMPLETED.BED IN LOW POSITION,CL IN EASY REACH.BED ALARM ON AND WORKING.WILL CONTINUE WITH CURRENT PLAN OF CARE.
[2020-01-30 08:00] VITALS: BP 163/79
--- NOTE | 2020-01-30 13:09 | NUR ---
NUTRITION FOLLOW UP: INTERVIEW: Met with patient this am. Patient stated her appetite has been poor for the past 2 days due to an allergic reaction to a medication. She stated that she has been experiencing nausea. She denied any vomiting, diarrhea, constipation, and denied any new issues with chewing/swallowing food. Patient stated that she needs help with her meals because she stated she has a hard time opening her juices, Boost, and other food/drink packages. Patient stated she has been drinking the Boost supplement when she can get it open. DIET: Mechanical Soft wtih chopped meats SUPPLEMENT: Boost with meals PO INTAKE: 47% avg for last 7 meals WEIGHT: 168 lbs on 01/18 BM: Stated last BM 01/29 with normal consistency SIG MEDS: Protonix, KCl SIG LABS: GFR-41(L) Goals: PO intake >/= 65% avg for meals, Maintain stable dry weight, Maintain Skin ingrity RD to continue to follow and monitor patient DHS
[2020-01-30 19:26] VITALS: BP 136/88
--- NOTE | 2020-01-30 19:47 | NUR ---
RECIEVED BEDSIDE SHIFT REPORT. ALERT AND ORIENTED WITH PERIODS OF CONFUSION. O2@ 2 LITERS PER N/C. CONTINUES TO HAVE LT SIDED WEAKNESS. HAS A RED RASH TO BACK. BED ALARM IN PLACE. DENIES ANY NEEDS AT THIS TIME.
--- NOTE | 2020-01-31 04:28 | NUR ---
RESTING IN BED WITH EYES CLOSED. CALL LIGHT AND PERSONAL EFFECT WITH IN REACH. NO OBVIOUS S/S OF DISTRESS OBSERVED.
--- NOTE | 2020-01-31 08:04 | NUR ---
SITTING UP IN W/C EATING BREAKFAST, DENIES ANY NEEDS AT THIS TIME, C/L AND FLUIDS IN REACH.
[2020-01-31 08:27] VITALS: BP 148/66
--- NOTE | 2020-01-31 12:00 | NUR ---
SITTING UP IN W/C EATING LUNCH, DENIES ANY NEEDS AT THIS TIME, C/L AND FLUIDS IN REACH.
--- NOTE | 2020-01-31 16:09 | NUR ---
SITTING UP IN W/C VISITING WITH DAUGHTER, DENIES ANY NEEDS AT THIS TIME, C/L AND FLUIDS IN REACH.
--- NOTE | 2020-01-31 19:17 | NUR ---
RECIEVED UP IN BED WITH EYES OPEN AND TV ON. ALERT AND ORIENTED WITH CONFUSION. CONT TO HAVE RASH OVER BACK, ABDOMEN AND CHEST.C/O NAUSEA. NEW ORDER RECIEVED FOR ZOFRAN. BED ALARMS IN PLACE. DENIES ANY OTHER NEEDS AT THIS TIME.
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
--- NOTE | 2020-02-01 08:00 | NUR ---
PT RESTING IN BED WITH EYES OPEN CALL LIGHT IN REACH WILL MONITER
[2020-02-01 10:01] VITALS: BP 137/74
--- NOTE | 2020-02-01 15:55 | NUR ---
PT RESTING IN BED WITH EYES OPEN CALL LIGHT IN REACH WILL MONITER
[2020-02-01 19:20] VITALS: BP 145/75
--- NOTE | 2020-02-01 19:20 | NUR ---
ASSESSMENT PER FLOW SHEET, VS OBTAINED, PT REPORTS FLATUS, BM TODAY AND VOIDING WITH NO DIFFICULTY, PT DENIES NEEDS OR PAIN, PT STATES "I AM SO EXCITED ABOUT GOING HOME TOMORROW", PT EDUCATED ON FALL RISKS, PT VERBALIZES UNDERSTANDING, FALL PRECAUTIONS IN PLACE
--- NOTE | 2020-02-01 20:26 | NUR ---
PT TALKING ON PHONE RIGHT NOW, INFORMED PT THAT I WILL COME BACK SHORTLY TO ASSIST HER WITH FILLING OUT MENU, PT VERBALIZES UNDERSTANDING, DENIES NEEDS AT THIS TIME
--- NOTE | 2020-02-01 20:48 | NUR ---
PT NIGHT TIME BABYSITTER LIGHT, PT UP TO BR WITH ASSISTANCE VIA WALKER, PT VOIDED, BRIEF CHANGED, PT BACK TO BED, PT REQUESTS MELATONIN AND TYLENOL WHEN I BRING HER MEDS, PT DENIES FURTHER NEEDS
--- NOTE | 2020-02-01 21:13 | NUR ---
ADM 2100 MEDS, MELATONIN AND TYLENOL PER MD ORDERS, SEE EMAR, PT DENIES FURTHER NEEDS, FALL PRECAUTIONS IN PLACE
--- NOTE | 2020-02-01 22:22 | NUR ---
PT RESTING WITH EYES CLOSED, RESP QUIET, NO DISTRESS NOTED, LEFT UNDISTURBED AT THIS TIME, FALL PRECAUTIONS IN PLACE
--- NOTE | 2020-02-02 00:26 | NUR ---
PT RESTING WITH EYES CLOSED, RESP QUIET, NO DISTRESS NOTED, LEFT UNDISTURBED AT THIS TIME, FALL PRECAUTIONS IN PLACE
--- NOTE | 2020-02-02 02:17 | NUR ---
PT RESTING WITH EYES CLOSED, RESP QUIET, NO DISTRESS NOTED, LEFT UNDISTURBED AT THIS TIME, FALL PRECAUTIONS IN PLACE
--- NOTE | 2020-02-02 03:33 | NUR ---
PT RESTING WITH EYES CLOSED, RESP QUIET, NO DISTRESS NOTED, LEFT UNDISTURBED AT THIS TIME, FALL PRECAUTIONS IN PLACE
--- NOTE | 2020-02-02 05:44 | NUR ---
PT SAS BI DEVELOPER LIGHT, PT UP TO BR WITH ASSISTANCE VIA WALKER, PT VOIDED WITH NO DIFFICULTY, PT BACK TO BED, PT REFUSES PROTONIX THIS MORNING, DENIES FURTHER NEEDS OR PAIN AT THIS TIME, FALL PRECAUTIONS IN PLACE
[2020-02-02 06:17] LABS: BASOPHILS 0.6 % (0-2); EOSINOPHILS 4.9 % (0-7); HEMATOCRIT 36.7 % (36.0-48.0); HEMOGLOBIN 11.8 g/dL (12-16); IMMATURE GRANULOCYTES 0.1 % (0-5); LYMPHOCYTES 24.4 % (15-50); MCH 30.3 pg (26.0-34.0); MCHC 32.2 g/dL (31.0-37.0); MCV 94.3 fL (80.0-100.0); MEAN PLATELET VOLUME 9.1 fL (7.4-10.4); MONOCYTES 9.5 % (2-11); NEUTROPHILS 60.5 % (40-80); PLATELET COUNT 314 10x3/uL (130-400); RBC 3.89 10x6/uL (4.00-5.40); RDW 12.7 % (11.5-14.5)
[2020-02-02 06:30] LABS: ANION GAP 8.8 mmol/L (8-16); CARBON DIOXIDE 30.3 mmol/L (21.0-32.0); CREATININE - SERUM 1.3 mg/dL (0.6-1.3); POTASSIUM - SERUM 3.1 mmol/L (3.5-5.1)
[2020-02-02 08:00] VITALS: BP 154/78
--- NOTE | 2020-02-02 08:00 | NUR ---
SITTING UP IN BED WAITING ON BREAKFAST. DENIES NEEDS OR C/O. LEFT SIDE WEAK. USES WALKER FOR AMBULATION.
--- NOTE | 2020-02-02 10:00 | NUR ---
PATIENT DISCHARGING HOME TODAY WITH FAMILY. [facility] WILL PROVIDE THERAPY AT HOME. NO NEW DME NEEDED AT THIS TIME. MARLY SIGNED, IMM SERVED AND EXPLAINED, ONE GIVEN TO PATIENT AND ONE FILED IN CHART. DR. DARDEN/BARBARA 02/12/20, DR. REYES 03/08/20 @ 10:15. DC INSTRUCTIONS FAXED TO PCP, HOME HEALTH AND REVIEWED WITH PATIENT PER PRIMARY NURSE.
--- NOTE | 2020-02-02 11:30 | NUR ---
HAS BEEN SITTING UP IN BED WATCHING TV. DENIES NEEDS OR C/O. USES WALKER FOR AMBULATION ASST. BLOTCHES TO BACK HAVE IMPROVED AND APPEAR TO BE CLEARING UP AND FADING.
--- NOTE | 2020-02-02 15:12 | NUR ---
REVIEWED DC PLAN WITH PT INCLUDING MEDS AND FOLLOW UP APPTS. SHE STATES UNDERSTANDING. SHE IS WAITING ON FAMILY (DTR) TO COME GET HER. SHE DENIES NEED FOR OXYGEN OR PAIN MEDS. SHE IS STILL WEAK ON LEFT AND USES WC AND WALKER FOR AMBULATION ASST.
== END 2020-02-02 19:24 | disposition home health service (06) | DRG 57 ==
LOC: D.REHAB 17:55
PROVIDERS: ADMIT Emergency Medicine; ATTEND Emergency Medicine
DX: I69.30 Unspecified sequelae of cerebral infarction (principal); G81.94 Hemiplegia, unspecified affecting left nondominant side; N17.9 Acute kidney failure, unspecified; R53.1 Weakness; R13.12 Dysphagia, oropharyngeal phase; R73.9 Hyperglycemia, unspecified; I10 Essential (primary) hypertension; I25.10 Atherosclerotic heart disease of native coronary artery without angina pectoris; R26.9 Unspecified abnormalities of gait and mobility